=== PATIENT | female | born 1960 | race Caucasian/White ===

== ENCOUNTER 2017-03-24 02:51 | Emergency (ER) | payer OTHER ==
[~2017-03-24 02:51] MED LIST: DARVOCET-N 1001 TAB PO; FLEXERIL10 MG PO; MOTRIN600 MG PO; PROZAC20 MG PO; SYNTHROID125 MC1 PO
[2017-03-24 03:44] LABS: URINE BILIRUBIN NEGATIVE (NEG); URINE BLOOD LARGE (NEG); URINE GLUCOSE (UA) NEGATIVE (NEG); URINE KETONE SMALL (NEG); URINE LEUKOCYTE ESTERASE POSITIVE (NEG); URINE NITRITE NEGATIVE (NEG); URINE PROTEIN MODERATE (NEG); URINE SPECIFIC GRAVITY 1.015 (1.003-1.030)
[2017-03-24 03:46] LABS: BASO % 0.3 % (0-2); EOS % 0.7 % (0-7); EOSINOPHIL ABSOLUTE COUNT 0.1 tho/cmm (0.0-0.7); HCT-HEMATOCRIT 38.8 % (34.0-49.0); IMMATURE GRANULOCYTES ABSOLUTE 0.02 tho/cmm (0-0.03); IMMATURE GRANULOCYTES PERCENT 0.2 % (0-0.3); LYMPH % 17.2 % (20-45); LYMPH ABSOLUTE COUNT 1.7 tho/cmm (0.8-4.5); MCH (MEAN CORPUSCULAR HGB) 29.9 pg (28.0-32.0); MCHC MEAN CORPUSCULAR HGB CONC 33.5 % (32.0-36.0); MCV (MEAN CELL VOLUME) 89.2 fl (82.0-96.0); MEAN PLATELET VOLUME 10.4 cmc (9.4-12.4); MONO % 6.4 % (0-12); MONOCYTE ABSOLUTE COUNT 0.6 tho/cmm (0.0-1.2); NEUTROPHIL ABSOLUTE COUNT 7.2 tho/cmm (1.6-8.0); NEUTROPHIL-AUTOMATED 7.2 tho/cmm (1.6-8.0); NEUTROPHILS % 75.2 % (40-80); PLATELET COUNT 207 tho/cmm (150-450); RED BLOOD COUNT 4.35 mil/cmm (4.00-5.20); WHITE BLOOD COUNT 9.6 tho/cmm (4.0-10.0)
[2017-03-24 03:49] LABS: URINE APPEARANCE HAZY; URINE COLOR BROWN
[2017-03-24 03:55] LABS: URINE BACTERIA 2+; URINE EPITHELIAL CELLS RARE /[HPF] (0-10); URINE RBC 30-50 /[HPF] (0-5)
[2017-03-24 04:01] LABS: ALBUMIN 3.8 g/dl (3.5-5.0); ALKALINE PHOSPHATASE 104 U/L (33-138); ALT/SGPT 19 U/L (12-78); ANION GAP 13 mmol/L (0-20); AST/SGOT 14 U/L (10-40); BILIRUBIN,TOTAL 0.3 mg/dl (0-1.5); BLOOD UREA NITROGEN 23 mg/dl (6-24); CALCIUM 9.3 mg/dl (8.5-10.5); CARBON DIOXIDE-VENOUS 27 mmol/L (22-32); CHLORIDE 107 mmol/l (96-110); CREATININE 1.39 mg/dl (0.50-1.10); GLUCOSE 158 mg/dL (70-110); POTASSIUM 4.1 mmol/L (3.7-5.1); SODIUM 143 mmol/L (135-145); eGFR VALUE FOR BLACK 49 mL/Min
[2017-03-24] MEDS ORDERED: ULTRAM50 M1 PO (06:07)
[2017-03-24] MEDS ORDERED: CIPRO500 M2 PO (06:07)
[2017-03-24] MEDS ORDERED: FLOMAX0.4 M1 PO (06:07)
[2017-03-24] MEDS ORDERED: ZOFRAN4 M2 PO (06:12)
== END 2017-03-24 06:43 ==
LOC: EDMED 02:51
PROVIDERS: Emergency Medicine
DX: N13.2 Hydronephrosis with renal and ureteral calculous obstruction (principal); N39.0 Urinary tract infection, site not specified; N17.9 Acute kidney failure, unspecified; Z87.442 Personal history of urinary calculi; Z88.0 Allergy status to penicillin; Z88.2 Allergy status to sulfonamides
CPT/HCPCS: J0696; J7030

== ENCOUNTER 2017-03-27 22:06 | Emergency (ER) | payer OTHER ==
[~2017-03-27 22:06] MED LIST changes: +CIPRO500 M2 PO; +FLOMAX0.4 M1 PO; +ULTRAM50 M1 PO; +ZOFRAN4 M2 PO
[2017-03-27 23:26] LABS: URINE BILIRUBIN NEGATIVE (NEG); URINE BLOOD MODERATE (NEG); URINE GLUCOSE (UA) NEGATIVE (NEG); URINE KETONE NEGATIVE (NEG); URINE LEUKOCYTE ESTERASE POSITIVE (NEG); URINE NITRITE NEGATIVE (NEG); URINE PROTEIN NEGATIVE (NEG); URINE SPECIFIC GRAVITY 1.015 (1.003-1.030)
[2017-03-27 23:27] LABS: URINE APPEARANCE HAZY; URINE COLOR YELLOW
[2017-03-27 23:32] LABS: URINE MUCUS 1+; URINE RBC 0-3 /[HPF] (0-5)
== END 2017-03-27 23:45 ==
LOC: EDMED 22:06
PROVIDERS: Emergency Medicine
DX: N20.0 Calculus of kidney (principal); E03.9 Hypothyroidism, unspecified; Z79.890 Hormone replacement therapy; Z87.442 Personal history of urinary calculi
CPT/HCPCS: J1885; J2405; J7030